=== PATIENT | male | born 1980 | race African-American/Black ===

== ENCOUNTER 2018-06-07 09:12 | Emergency (ER) | payer OTHER | END 2018-06-07 10:30 | disposition home or self-care (01) | LOC: M ED 09:12 | DX: M50.122 Cervical disc disorder at C5-C6 level with radiculopathy (principal); I10 Essential (primary) hypertension | CPT/HCPCS: 99283 ==

== ENCOUNTER → 2018-06-08 | Outpatient (CLI) | payer OTHER | LOC: M RAD 08:37 | DX: Z98.1 Arthrodesis status (principal); M50.222 Other cervical disc displacement at C5-C6 level; M54.12 Radiculopathy, cervical region | CPT/HCPCS: 72141 ==

== ENCOUNTER 2018-06-09 16:13 | Emergency (ER) | payer OTHER | END 2018-06-09 19:07 | disposition home or self-care (01) | LOC: M ED 16:13 | DX: M50.222 Other cervical disc displacement at C5-C6 level (principal); I10 Essential (primary) hypertension; Z79.899 Other long term (current) drug therapy | CPT/HCPCS: 99284 ==

== ENCOUNTER 2019-07-10 15:50 | Emergency (ER) | payer OTHER ==
[~2019-07-10] VITALS: Ht 165.1 cm; Wt 119.1 kg
[~2019-07-10 15:50] MED LIST: BLOOD PRESSURE MEDS; CYCL10TA PO; METO1TAB7 PO; NEUR300C PO; PRAZ1CAP PO; PRED20TA PO; ROSU40TA4 PO; VENTAER INH; VITA50005 PO; ZITHTAB PO
[2019-07-10] MEDS ORDERED: GABAPENTIN 300 MG CAP PO ONE (16:30)
[2019-07-10] MEDS ORDERED: NAPROXEN 250 MG TAB PO ONE (16:30)
[2019-07-10] MEDS ORDERED: GABA-843 PO (17:10)
[2019-07-10] MEDS ORDERED: NAPR-837 PO (17:10)
[2019-07-10 17:13] VITALS: BP 205/120
[2019-07-10] MEDS ORDERED: traMADol 50 MG TAB (BULK 4 TAB ED) PO ONE (17:30)
== END 2019-07-10 17:40 | disposition home or self-care (01) ==
LOC: M ED 15:50
DX: S46.001A Unspecified injury of muscle(s) and tendon(s) of the rotator cuff of right shoulder, initial encounter (principal); W01.0XXA Fall on same level from slipping, tripping and stumbling without subsequent striking against object, initial encounter; Y92.89 Other specified places as the place of occurrence of the external cause; I10 Essential (primary) hypertension; Z79.899 Other long term (current) drug therapy

== ENCOUNTER 2019-07-15 11:13 | Emergency (ER) | payer OTHER ==
[~2019-07-15] VITALS: Ht 165.1 cm; Wt 118.0 kg
[~2019-07-15 11:13] MED LIST changes: +GABA-843 PO; +NAPR-837 PO
[2019-07-15] MEDS ORDERED: EZET10TA21 PO (11:25)
[2019-07-15] MEDS ORDERED: cloNIDine 0.2 MG TAB PO ONE (12:00)
[2019-07-15 12:53] VITALS: BP 174/138
== END 2019-07-15 13:20 | disposition home or self-care (01) ==
LOC: M ED 11:13
DX: S46.001A Unspecified injury of muscle(s) and tendon(s) of the rotator cuff of right shoulder, initial encounter (principal); W10.8XXA Fall (on) (from) other stairs and steps, initial encounter; Y92.89 Other specified places as the place of occurrence of the external cause; Y99.0 Civilian activity done for income or pay; I10 Essential (primary) hypertension; Z79.899 Other long term (current) drug therapy; Z79.1 Long term (current) use of non-steroidal anti-inflammatories (NSAID)

== ENCOUNTER 2020-02-03 11:58 | Inpatient (IN) | payer OTHER ==
[~2020-02-03] VITALS: Ht 165.1 cm; Wt 119.9 kg
[2020-02-03] VITALS (16 sets, daily range): BP systolic 139–215; BP diastolic 80–129
[~2020-02-03 11:58] MED LIST changes: -AMLO10TA PO; -EPINEPHrine 1MG/ML INJ 30ML MD-VIAL As Ordered ONE; -GABA-1171 PO; -LIDOCAINE 2% 100MG/5ML SDV (FOR ANES.) As Ordered ONE; -LISI40TA PO; -LR 1,000 ML IV ONE; -MELO7.5T35; -METOPROLOL SUCC *XL* 25MG TAB (TopROL *XL*) As Ordered ONE; -METOPROLOL SUCC *XL* 25MG TAB (TopROL *XL*) PO ONE; -ONDANSETRON 4MG/2ML VIAL As Ordered ONE; -PERC10TA26 PO; -PERC5TAB12 PO; -PRAZ1CAP; -ROCURONIUM BROMIDE 50 MG/5 ML VIAL As Ordered ONE; -SELF1KIT MC; -SENO8.6T10 PO; -SUGAMMADEX SODIUM 500 MG/5 ML VIAL (BRIDION) As Ordered ONE; -TOPR50TA PO; -ceFAZolin SOD 2 GM in IV 1 EA IV ONE; -propofoL 200 MG/20 ML VIAL As Ordered ONE
[2020-02-03] MEDS ORDERED: TOPR50TA PO (12:13)
[2020-02-03] MEDS ORDERED: PRAZ1CAP (12:13)
[2020-02-03 12:43] LABS: HEMATOCRIT 40.6 % (42.0-52.0); HEMOGLOBIN 12.7 g/dl (13.5-17.5); MEAN CORPUSCULAR HEMOGLOBIN 24.9 pg (27.0-33.0); MEAN CORPUSCULAR HGB CONC 31.3 g/dl (32.0-36.5); MEAN CORPUSCULAR VOLUME 79.5 fl (80.0-96.0); PLATELET COUNT, AUTOMATED 226 10^3/uL (150-450); RED BLOOD COUNT 5.11 10^6/uL (4.30-6.10); WHITE BLOOD COUNT 4.7 10^3/uL (4.0-10.0)
[2020-02-03 13:10] LABS: ALBUMIN 3.8 GM/DL (3.2-5.2); BILIRUBIN,DIRECT 0.2 MG/DL (0.0-0.2); BILIRUBIN,TOTAL 0.9 MG/DL (0.2-1.0); TOTAL PROTEIN 6.5 GM/DL (6.4-8.2)
[2020-02-03] MEDS ORDERED: LABETALOL 100MG/20ML VIAL IV STA ×2 (13:12→14:08)
[2020-02-03] MEDS ORDERED: niCARdipine IV 40 MG in IV 1 EA IV SCH (15:05)
[2020-02-03] MEDS ORDERED: ACETAMINOPHEN TAB 650MG DOSE (2X325MG) PO PRN (15:15)
[2020-02-03] MEDS ORDERED: CHLORTHALIDONE 25 MG TAB PO ONE (15:15)
[2020-02-03] MEDS ORDERED: lisinopriL 40 MG TAB PO ONE (15:15)
--- NOTE | 2020-02-03 15:27 | HPEPDOC ---
General Date of Admission 02/03/20 Date of Service: Feb 03, 2020 Chief Complaint The patient is a 40-year-old male admitted with a reason for visit of Elevated Bp. Source: Patient Exam Limitations: No limitations Timing/Duration: 4-6 hours Severity: Moderate History of Present Illness Patient is 40 years old male with past medical history of hypertension presented hospital with systolic blood pressure of 230. Patient supposed to have elective surgery for rotator cuff injury in the morning however he was found to have significantly elevated blood pressure and he was sent to ER. In ER patient was found to have blood pressure of 234/133, mildly subsided after 2 doses of labetalol IV. After labetalol his blood pressure continues being 205/110. Patient does not have headache, visual changes. Labs pertinent for hemoglobin 12.6 and creatinine 1.3. EKG didn't show any acute ischemic changes. Of note patient stated that recently his blood pressure medication regimen was changed, JUAN DIEGO inhibitor was discontinued, prazosin was added. Home Medications Scheduled Gabapentin (Gabapentin) 300 Mg Capsule, 1 CAP PO BID increase to three times per week after first week Meloxicam (Mobic) 7.5 Mg Tablet, Unknown Dose PO PRN, (Reported) WITH FOOD Prazosin Hcl (Prazosin HCl) 1 Mg Capsule, QHS, (Reported) Scheduled PRN Albuterol Sulfate (Ventolin Hfa) 108 Mcg/Act Aer, 2 PUFFS INH Q4HP PRN for SHORTNESS OF BREATH Miscellaneous Medications Metoprolol Succinate (Toprol Xl) 50 Mg Tab.er.24h, (Reported) Allergies Coded Allergies: No Known Allergies (Unverified , 07/10/19) Past Medical History Medical History Hypertension Surgical History Rotator cuff injury Family History Mother had breast cancer Father had coronary artery diseases Social History * Smoker: Denies Alcohol: occationally Drugs: denies A-FIB/CHADSVASC A-FIB History Current/History of A-Fib/PAF?: No Current PO Anticoag Therapy: No Review of Systems Constitutional: Denies: Chills, Fever Eyes: Denies: Pain, Vision change ENT: Denies: Head Aches Skin: Denies: Rash Pulmonary: Denies: Dyspnea Cardiovascular: Denies: Chest Pain Gastrointestinal: Denies: Nausea Genitourinary: Denies: Dysuria Hematologic: Denies: Bruising Endocrine: Denies: Polydipsia Musculoskeletal: Denies: Neck Pain Neurological: Denies: Weakness Psych: Reports: Mood Normal Physical Examination General Exam: Positive: Alert, Cooperative Eye Exam: Positive: PERRLA ENT Exam: Positive: Atraumatic, Mucous membr. moist/pink Neck Exam: Positive: Supple; Negative: JVD Chest Exam: Positive: Clear to auscultation Heart Exam: Positive: Rate Normal Telemetry: Positive: No significant arrhythmia Abdomen Exam: Positive: Normal bowel sounds Extremity Exam: Negative: Clubbing Skin Exam: Positive: Nl turgor and temperature Neuro Exam: Positive: Strength at 5/5 X4 ext, Cranial Nerves 3-12 NL Psych Exam: Positive: Mental status NL Vital Signs Vital Signs Date Time Temp Pulse Resp B/P (MAP) Pulse Ox O2 Delivery O2 Flow Rate FiO2 02/03/20 14:44 78 216/128 02/03/20 14:31 99 02/03/20 12:02 97.0 18 Room Air Laboratory Data Labs 24H Laboratory Tests 2 02/03/20 12:33: Nucleated Red Blood Cells % (auto) 0.0, Total Bilirubin 0.9, Direct Bilirubin 0.2, Aspartate Amino Transf (AST/SGOT) 16, Alanine Aminotransferase (ALT/SGPT) 23, Alkaline Phosphatase 59, Total Protein 6.5, Albumin 3.8, Albumin/Globulin Ratio 1.4 02/03/20 12:41: POC Glucose (Misc Panel) 108H, POC Sodium (Misc Panel) 142, POC Potassium (Misc Panel) 3.8, POC Chloride (Misc Panel) 103, POC Total CO2 (Misc Panel) 26.0, POC Blood Urea Nitrogen (Misc Panel 12, POC Ionized Calcium (Misc Panel) 4.7, POC Creatinine (Misc Panel) 1.3, POC Hematocrit (Misc Panel) 40.0 CBC/BMP Laboratory Tests 02/03/20 12:33 Assessment/Plan Patient is 40 years old male with past medical history of hypertension presented hospital with systolic blood pressure of 230. Patient supposed to have elective surgery for rotator cuff injury in the morning however he was found to have significantly elevated blood pressure and he was sent to ER. In ER patient was found to have blood pressure of 234/133, mildly subsided after 2 doses of labetalol IV. After labetalol his blood pressure continues being 205/110. Cheyanne ent does not have headache, visual changes. Labs pertinent for hemoglobin 12.6 and creatinine 1.3. EKG didn't show any acute ischemic changes. Of note patient stated that recently his blood pressure medication regimen was changed, JUAN DIEGO inhibitor was discontinued, prazosin was adde Problems (1) Hypertensive urgency Status: Acute Problem Text: Patient does not have headache, visual changes, nosebleed His high blood pressure was resistant to 2 dose of labetalol IV Nicardipine drip I will start lisinopril and chlorthalidone Will check renin aldosterone ratio Kidney ultrasound Echo Plan / VTE VTE Prophylaxis Ordered?: Yes JUDI VACA DO Feb 03, 2020 15:27
[2020-02-03] MEDS ORDERED: GABA-1171 PO (15:28)
[2020-02-03] MEDS: HEPARIN SOD (PORCINE) 5000UNITS/ML VIAL (J1644 PER 1000UNITS) SC SCH (20:42)
[2020-02-04] VITALS (44 sets, daily range): BP systolic 81–237; BP diastolic 52–134
[2020-02-04 05:09] LABS: HEMATOCRIT 42.7 % (42.0-52.0); HEMOGLOBIN 13.6 g/dl (13.5-17.5); MEAN CORPUSCULAR HEMOGLOBIN 24.9 pg (27.0-33.0); MEAN CORPUSCULAR HGB CONC 31.9 g/dl (32.0-36.5); MEAN CORPUSCULAR VOLUME 78.2 fl (80.0-96.0); PLATELET COUNT, AUTOMATED 260 10^3/uL (150-450); RED BLOOD COUNT 5.46 10^6/uL (4.30-6.10); WHITE BLOOD COUNT 5.4 10^3/uL (4.0-10.0)
[2020-02-04 05:22] LABS: ALBUMIN 3.9 GM/DL (3.2-5.2); ALT/SGPT 21 U/L (12-78); BILIRUBIN,TOTAL 0.9 MG/DL (0.2-1.0); BLOOD UREA NITROGEN 11 MG/DL (7-18); CALCIUM LEVEL 8.8 MG/DL (8.5-10.1); CARBON DIOXIDE LEVEL 32 MEQ/L (21-32); CHLORIDE LEVEL 106 MEQ/L (98-107); CREATININE FOR GFR 1.23 MG/DL (0.70-1.30); GLOMERULAR FILTRATION RATE > 60.0 (>60); GLUCOSE, FASTING 108 MG/DL (70-100); MAGNESIUM LEVEL 2.2 MG/DL (1.8-2.4); POTASSIUM SERUM 3.6 MEQ/L (3.5-5.1); SODIUM LEVEL 143 MEQ/L (136-145); TOTAL PROTEIN 6.9 GM/DL (6.4-8.2)
[2020-02-04] MEDS ORDERED: cloNIDine 0.1 MG TAB PO SCH (07:45)
[2020-02-04] MEDS ORDERED: atenoloL 50 MG TAB PO ONE (08:00)
[2020-02-04] MEDS ORDERED: NITROGLYCERIN 2% OINT 1 GM *U/D* PKT TD SCH (08:00)
[2020-02-04] MEDS ORDERED: lisinopriL 40 MG TAB PO SCH (09:00)
[2020-02-04] MEDS: HEPARIN SOD (PORCINE) 5000UNITS/ML VIAL (J1644 PER 1000UNITS) SC SCH (09:10)
--- NOTE | 2020-02-04 09:27 | ECGEPIP ---
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
[2020-02-04] MEDS ORDERED: NS 1,000 ML IV ONE ×2 (11:00→13:30)
--- NOTE | 2020-02-04 11:59 | REPVR ---
PROCEDURE INFORMATION: Exam: US Retroperitoneal; Complete; Kidneys and Bladder Exam date and time: 02/04/2020 11:11 AM Age: 40 years old Clinical indication: Other: HTN; Additional info: HTN urgency R/O renal artery stenosis TECHNIQUE: Imaging protocol: Real-time ultrasound of the retroperitoneum with image documentation. Complete exam focused on the kidneys and bladder. COMPARISON: No relevant prior studies available. FINDINGS: Right kidney: There is a cystic lesion in the upper pole of the right kidney measuring 2.4 by 2.0 x 2.4 cm. There are small nodular echogenic foci at the periphery of this otherwise cystic lesion. The right kidney measures 9.8 x 3.9 x 4.3 cm. No hydronephrosis. No echogenic shadowing foci to suggest renal calculi. Right main renal artery peak systolic velocity 107 cm/s. Peak aortic velocity 98 cm/s. Renal aortic ratio 1.09. Resistive indices in the right kidney are within normal limits ranging from 0.54-0.55. Early systolic peaks are within normal limits. Left kidney: The left kidney is normal in size and echogenicity, measuring 9.5 x 4.4 x 4.0 cm. No hydronephrosis. No echogenic shadowing foci to suggest renal calculi. Left main renal artery peak systolic velocity is 107 cm/s. Peak aortic velocity is 98 cm/s. Renal aortic ratio is 1.09. Resistive indices on the left are within normal limits ranging from 0.52-0.56. Early systolic peaks are within normal limits. Intraperitoneal space: No free fluid. Bladder: The bladder is grossly unremarkable, mostly collapsed. IMPRESSION: 1. 2.4 cm cystic lesion in the upper pole of the right kidney, which has small nodular echogenic foci at its periphery, of uncertain etiology. This is indeterminate and could be further evaluated with MR or CT. 2. No evidence of renal artery stenosis. Electronically signed by: Katie Mendoza On 02/04/2020 11:58:53 AM
--- NOTE | 2020-02-04 14:45 | IPN ---
DATE: 02/04/2020 Patient denies any chest pain, pressure, or tightness, shortness of breath, lightheadedness, or dizziness. Admitted for hypertensive urgency. Elective surgery has been postponed due to uncontrolled blood pressure, 237/107. VITAL SIGNS: 237/107, 94% on room air, afebrile, pulse of 81, respiratory rate of 18. GENERAL: Awake, alert, oriented times three, anicteric sclerae. No jaundice. No icterus. Mucous membranes. No jugular venous distention (JVD) or thyromegaly. LUNGS: Clear to auscultation. No wheezes, rales, or rhonchi. HEART: S1, S2, sinus rhythm. ABDOMEN: Obese, soft, nontender, nondistended. Positive bowel sounds. EXTREMITIES: No cyanosis or clubbing. LABORATORY DATA: White count 5, hemoglobin 13, hematocrit 42, platelet count 260. Sodium 143, potassium 3.6, chloride 106, bicarbonate 32, BUN 11, creatinine 1.2, glucose 108. ASSESSMENT AND PLAN: A 40-year-old male had rotator cuff injury. Presented for routine blood test. Was found to have systolic pressure of 234, sent to the emergency room (ER). EKG had no acute ischemic changes. Creatinine was 1.3. Angiotensin-converting enzyme (JUAN DIEGO) inhibitor was discontinued. Prazosin was added. Patient was admitted for the following. 1. Hypertensive urgency. Was put on Nipride drip overnight. Nothing by mouth after midnight for renal ultrasound with Doppler. Rule out renal artery stenosis. Patient's Nipride drip can be discontinued and resume on home dose of chlorthalidone. Since creatinine is normal, awaiting renal ultrasound to make sure no renal artery stenosis. If negative, may resume on home dose of lisinopril. If still unstable, may place on nitroglycerine topically every 4 hours and Tylenol 100 times one. So long as the heart rate is greater than 60. Patient may benefit from cardiology referral, hypertensive specialist, Dr. Thierno Campuzano, as outpatient. We will wait for the aldosterone/renin ratio to rule out primary hyperaldosteronism. Check renal ultrasound with Doppler to rule out renal artery stenosis. Patient does not give any history of possible pheochromocytoma but may be evaluated as outpatient for metanephrines and vanillylmandelic acid. 2. Rotator cuff injury. Patient's surgery has been postponed until he is much more stable. Outpatient rescheduling. 3. Obesity, body mass index (BMI) of 44. Patient will benefit from obstructive sleep apnea (MED) workup as outpatient. Check lipid profile and A1c to rule out metabolic syndrome. MTDD
[2020-02-04] MEDS ORDERED: LISI40TA PO (17:04)
[2020-02-04] MEDS ORDERED: AMLO10TA PO (17:11)
[2020-02-04] MEDS ORDERED: PERC5TAB12 PO (17:12)
[2020-02-04] MEDS ORDERED: SELF1KIT MC (17:15)
[2020-02-04] MEDS ORDERED: PERC10TA26 PO (17:30)
[2020-02-04] MEDS ORDERED: SENO8.6T10 PO (17:30)
[2020-02-04] MEDS ORDERED: CHLORTHALIDONE 25 MG TAB PO SCH ×2 (18:00)
--- NOTE | 2020-02-06 16:12 | DSES ---
DATE OF ADMISSION: 02/03/2020 DATE OF DISCHARGE: 02/04/2020 DISCHARGE INSTRUCTIONS: Patient is to be referred to Dr. Campuzano, hypertensive specialist, traffic engineering director, [place], [place], for hypertensive urgency. DISCHARGE DIAGNOSES: 1. Hypertensive urgency. Renal artery stenosis has been ruled out. 2. Rotator cuff injury. 3. Obesity, body mass index of 44. Primary care physician to obtain an MRI or CT of the 2.4 cm cystic lesion, upper pole of the right kidney, within 2 weeks. DISCHARGE MEDICATIONS: - Norvasc 10 mg daily - lisinopril 40 mg daily - Percocet one tablet every 6 as needed for pain - Senokot one tablet by mouth twice a day as needed for constipation - albuterol two puffs inhaled every 4 as needed HOSPITAL COURSE: This is a 40-year-old male diagnosed with hypertension several years ago with no workup, who presented for routine blood best for elective rotator cuff injury with Dr. Smith and was found to have systolic pressure of 234, sent to the emergency room (ER) emergently due to hypertensive urgency. EKG had no acute ischemic changes. Creatinine was 1.3. Angiotensin-converting enzyme (JUAN DIEGO) inhibitor was initially discontinued. Prazosin was added. Patient was put on Nipride drip. Renal ultrasound with Doppler was ordered for the following day. He was kept nothing by mouth after midnight. On Nipride drip patient had improvement in his blood pressure to 133/78. Patient was removed from Nipride drip and started back on his home dose of lisinopril. He was given a dose of atenolol and chlorthalidone with subsequent hypotension, systolic pressure of 91/58. Patient was subsequently given 2 liters of intravenous (IV) bolus with improvement to 116/62. Patient was kept on Norvasc and lisinopril as outpatient and is to referred to Dr. Campuzano, hypertensive specialist, for further workup. Renin-angiotensin were obtained, but result was not back on the day of discharge. Renal ultrasound with Doppler showed no renal artery stenosis. PHYSICAL EXAMINATION ON DISCHARGE: Temperature 97.9, pulse 68, respiratory rate 16, blood pressure 116/62, 98% on room air. GENERAL: Awake, alert, oriented times three, answering questions appropriately. LUNGS: Clear to auscultation. No wheezes, rales, or rhonchi. HEART: S1, S2, sinus rhythm. No murmurs, rubs, or gallops. ABDOMEN: Soft, nontender, nondistended. Positive bowel sounds. EXTREMITIES: No cyanosis, clubbing, or any pitting edema. Patient has limited range of motion in the right shoulder due to rotator cuff injury. LABORATORY DATA ON DISCHARGE: White count 5.4, hemoglobin 13, hematocrit 42, platelet count 260. Sodium 143, potassium 3.6, chloride 106, bicarbonate 32, BUN 11, creatinine 1.23, glucose 108, calcium 8.8, magnesium 2.2. Total bilirubin 0.9, direct bilirubin 0.2, AST 17, ALT 21, alkaline phosphatase 58, total protein 6.9, albumin 3.9. Renin activity pending. IMAGING STUDIES: Renal ultrasound with Doppler: A 2.4 cm cystic lesion, upper pole of the kidney, which is small nodular density of uncertain etiology and determined it could be further evaluated with magnetic resonance cholangiopancreatography (MRCP). No evidence of renal artery stenosis. TIME SPENT ON DISCHARGE: 30 minutes. [facility]
== END 2020-02-04 18:45 | disposition home or self-care (01) | DRG 305 ==
LOC: M ED 11:58 → M ED INP 15:05 → ENRESERV 17:31 → M ICU 20:08
PROVIDERS: ADMIT Internal Medicine; ATTEND General Practice
DX: I16.0 Hypertensive urgency (principal); Z68.44 Body mass index [BMI] 60.0-69.9, adult; Z79.899 Other long term (current) drug therapy; E66.9 Obesity, unspecified

== ENCOUNTER → 2020-02-03 | Day surgery (SDC) | payer OTHER ==
[~2020-02-03] VITALS: Ht 165.1 cm; Wt 113.4 kg
[~2020-02-03] MED LIST changes: +AMLO10TA PO; +CYCL-707 PO; -CYCL10TA PO; +EPINEPHrine 1MG/ML INJ 30ML MD-VIAL As Ordered ONE; +EZET10TA21 PO; +GABA-1171 PO; +LIDOCAINE 2% 100MG/5ML SDV (FOR ANES.) As Ordered ONE; +LISI40TA PO; +LR 1,000 ML IV ONE; +MELO7.5T35; +METOPROLOL SUCC *XL* 25MG TAB (TopROL *XL*) As Ordered ONE; +METOPROLOL SUCC *XL* 25MG TAB (TopROL *XL*) PO ONE; +MOBI4TAB PO; +ONDANSETRON 4MG/2ML VIAL As Ordered ONE; +PERC10TA26 PO; +PERC5TAB12 PO; +PRAZ1CAP; +ROCURONIUM BROMIDE 50 MG/5 ML VIAL As Ordered ONE; +SELF1KIT MC; +SENO8.6T10 PO; +SUGAMMADEX SODIUM 500 MG/5 ML VIAL (BRIDION) As Ordered ONE; +TOPR50TA PO; +ceFAZolin SOD 2 GM in IV 1 EA IV ONE; +propofoL 200 MG/20 ML VIAL As Ordered ONE
[2020-02-03] MEDS: MIDAZOLAM INJ 2MG/2ML VIAL (J2250 PER 1MG) IV PRN ×2 (10:21→10:56)
[2020-02-03 10:56] VITALS: BP 218/120
[2020-02-03 11:27] VITALS: BP 218/144
--- NOTE | 2020-02-04 08:16 | IPN ---
DATE: 02/03/2020 Note from the day surgery. We had planned to perform right shoulder arthroscope biceps tenodesis versus superior labral anterior posterior (SLAP) repair. Unfortunately, Mr. Melendez's pressure remained 220 and greater than 200 with medications. As such, in consultation with the laborer heading, Dr. Collier, it has been decided to cancel the case due to high pressure not controlled with medications. We will send this patient through the emergency department due to high blood pressure over 200 to have this under control. He will followup with his family doctor to achieve better control of his blood pressure on outpatient status and reschedule the case.
== END | disposition home or self-care (01) ==
LOC: M SDC 09:12
PROVIDERS: ATTEND Orthopaedic Surgery Sports Medicine
DX: M75.21 Bicipital tendinitis, right shoulder (principal); Z53.09 Procedure and treatment not carried out because of other contraindication; I10 Essential (primary) hypertension
CPT/HCPCS: J2250 ×2

== ENCOUNTER → 2020-04-22 | Outpatient (CLI) | payer OTHER ==
[~2020-04-22] MED LIST changes: +AMLO10TA PO; +GABA-1171 PO; +LISI40TA PO; +MELO7.5T35; +PERC10TA26 PO; +PERC5TAB12 PO; +PRAZ1CAP; +SELF1KIT MC; +SENO8.6T10 PO; +TOPR50TA PO
== END ==
LOC: M LABSMTC 09:07
PROVIDERS: ATTEND Anesthesiology
DX: Z01.812 Encounter for preprocedural laboratory examination (principal); Z20.828 Contact with and (suspected) exposure to other viral communicable diseases

== ENCOUNTER 2020-04-27 08:10 | Day surgery (SDC) | payer OTHER ==
[~2020-04-27] VITALS: Ht 165.1 cm; Wt 120.1 kg
[~2020-04-27 08:10] MED LIST changes: +MIDAZOLAM INJ 2MG/2ML VIAL (J2250 PER 1MG) IV SCH; +fentaNYL 100 MCG/2 ML INJECTION (J3010) IV SCH
[2020-04-27] MEDS ORDERED: dexameTHASONE 10MG/1ML VIAL PRES.FREE (J1100 PER 1MG) ONE (08:11)
[2020-04-27] MEDS ORDERED: EPINEPHrine INJ 1 MG/ML 1ML AMP ONE (08:11)
[2020-04-27] MEDS ORDERED: ROPIvacaine 0.5% 30ML INJECTION (J2795 PER 1MG) ONE (08:11)
[2020-04-27] MEDS ORDERED: LR 1,000 ML IV ONE (08:45)
[2020-04-27] MEDS ORDERED: SUGAMMADEX SODIUM 500 MG/5 ML VIAL (BRIDION) As Ordered ONE (08:51)
[2020-04-27] MEDS ORDERED: propofoL 200 MG/20 ML VIAL As Ordered ONE (08:51)
[2020-04-27] MEDS ORDERED: ACETAMINOPHEN 1000MG 100ML IV BTL (OFIRMEV) (J0131 PER 10MG) As Ordered ONE (08:51)
[2020-04-27] MEDS ORDERED: ONDANSETRON 4MG/2ML VIAL As Ordered ONE (08:51)
[2020-04-27] MEDS ORDERED: LIDOCAINE 2% 100MG/5ML SDV (FOR ANES.) As Ordered ONE (08:51)
[2020-04-27] MEDS ORDERED: dexameTHASONE 4 MG/ML 1ML VIAL (J1100 PER 1MG) As Ordered ONE (08:51)
[2020-04-27] MEDS ORDERED: ROCURONIUM BROMIDE 50 MG/5 ML VIAL As Ordered ONE (08:51)
[2020-04-27] MEDS ORDERED: KETOROLAC 60MG 2ML VIAL As Ordered ONE (08:51)
[2020-04-27] MEDS ORDERED: fentaNYL 100 MCG/2 ML INJECTION (J3010) As Ordered ONE ×2 (08:56→09:18)
[2020-04-27] MEDS ORDERED: MIDAZOLAM INJ 2MG/2ML VIAL (J2250 PER 1MG) As Ordered ONE ×2 (08:56→09:18)
[2020-04-27] MEDS ORDERED: ceFAZolin 2 GM/D5W 50 ML IV BAG (J0690 PER 500MG) As Ordered ONE (09:17)
[2020-04-27] MEDS ORDERED: ceFAZolin SOD 2 GM in IV 1 EA IV ONE (09:30)
[2020-04-27] MEDS ORDERED: EPINEPHrine 1MG/ML INJ 30ML MD-VIAL As Ordered ONE (09:34)
[2020-04-27] MEDS ORDERED: TRANEXAMIC ACID 100 MG/ML 10ML VIAL As Ordered ONE (10:37)
[2020-04-27] MEDS ORDERED: oxyCODONE 5MG TAB PO PRN ×2 (12:00→14:15)
[2020-04-27] MEDS ORDERED: ONDANSETRON 4MG/2ML VIAL IV PRN ×3 (12:00→14:15)
[2020-04-27] MEDS ORDERED: LR 1,000 ML IV SCH ×3 (12:00→14:15)
[2020-04-27] MEDS ORDERED: MEPERIDINE INJ 25 MG/ML VIAL (J2175) IV PRN ×2 (12:00→14:15)
[2020-04-27] MEDS ORDERED: METOCLOPRAMIDE INJ 10MG/2ML VIAL (J2765 PER 1) IV PRN ×2 (12:00→14:15)
[2020-04-27] MEDS: fentaNYL 100 MCG/2 ML INJECTION (J3010) IV PRN ×2 (12:30→12:36)
[2020-04-27] MEDS ORDERED: PERCOCET 5MG/325MG TAB PO PRN (13:00)
[2020-04-27] MEDS ORDERED: ACETAMINOPHEN TAB 650MG DOSE (2X325MG) PO PRN (13:00)
[2020-04-27] MEDS ORDERED: MORPHINE 2 MG/ML 1ML VIAL (J2270) IV PRN (13:00)
[2020-04-27] MEDS ORDERED: oxyCODONE 5MG TAB As Ordered ONE (14:03)
[2020-04-27] MEDS ORDERED: fentaNYL 100 MCG/2 ML INJECTION (J3010) IV PRN (14:15)
[2020-04-27 15:00] VITALS: BP 124/65
--- NOTE | 2020-05-01 08:05 | RO ---
DATE OF OPERATION: 04/27/2020 PREOPERATIVE DIAGNOSIS: Right shoulder SLAP tear. POSTOPERATIVE DIAGNOSIS: Right shoulder SLAP tear. PLANNED PROCEDURE: Right shoulder arthroscopic biceps subpectoral tenodesis. PROCEDURE PERFORMED: Right shoulder arthroscopic biceps subpectoral tenodesis; subacromial decompression; debridement of anterior labrum; takedown CA ligament. SURGEON: Keshawn Smith MD PIPE COREMAKER: Juli Das ANESTHESIA: General anesthetic plus block. OPERATIVE PREAMBLE: This 40-year-old man sustained a fall at work. Physical exam and MRI findings were consistent with SLAP tear. We talked about the pros and cons, risks and benefits of biceps subpectoral tenodesis in his age over 40. We reiterated the risks in preoperative holding and marked the right upper quadrant and proceeded to surgery. OPERATIVE REPORT: The patient was brought to the operating theater. Administered general anesthetic. He was placed in the supine in the beachchair positioner. 2 gm IV Ancef was administered and 2 gm IV tranexamic acid. Spider arm positioner was used to the patients right limb. All bony prominences were padded. SCDs were used on the down leg and bear hugger. Limb was prepped and draped in usual sterile fashion allowing over 3 minutes for the prep solution drying time prior to draping. Preoperative time out was performed confirming the site, patient and surgery. We began by inserting the arthroscope through standard posterior portal into the interarticular portion of the right shoulder. We made an anterior arthroscopy portal through the rotator interval using inside-out spinal needle localization. There was an obvious type 2 SLAP tear. Ablator was used to release the long head of the biceps. Shaving instrument was used to gently debride the superior and anterior labrum. There was moderate amount of anterior labral fraying. Subscapularis appeared normal as did the inner surface of the entire rotator cuff. Inferior axillary pouch was entered, no obvious loose body. Cartilage of humeral head and glenoid was normal. Scope was removed and inserted into subacromial space. There was small amount of bursitis. This was gently debrided through lateral portal. Shaver instrument brought in. Subacromial decompression was performed for full burs width. There was moderate type 2 down slope to the anterolateral acromion. No obvious rotator cuff tears. Arthroscope was withdrawn. Small longitudinal incision was made just below the pec insertion in line with the long head of the biceps, carried down through skin and subcutaneous tissue. Long head of the biceps was identified and delivered through the incision. FiberWire Arthrex Bio-Tenodesis Button System was used with Ariel needle. I whip stitched the tendon. I then fixed the sutures to the button in crisscross fashion. I identified the site for ideal tension on the tenodesis just proximal to this and underneath and deep to the pectoralis major tendon. I used spade-tip drill to drill bicortical. I delivered the button bicortical in the far cortex and then tensioned both suture limbs, delivered the tendon to the bone tunnel. I used Sorensen needle to then re-lock the suture into the tendon and then used alternating half stitches five throws and cut the sutures short. This fixed the biceps tendon nicely. The wounds were thoroughly irrigated. Subcutaneous tissue was closed with interrupted 2-0 Vicryl sutures and skin with 3-0 Monocryl and Steri-Strips. Local anesthetic was not used due to preoperative block. The skin was cleaned with wet-and-dry dressing followed by application of occlusive dressing. The patient was awoken up from general anesthetic. Upper extremity taken out of the setup, placed into sling. The patient was transferred off the operating table and taken to postanesthetic unit in stable condition. All sponge, instrument and needle counts were correct. No complications. Estimated blood loss 30 mL. Plan is for the patient to be in a sling, pendulum exercises. No active elbow flexion exercises for the first 4-6 weeks. Follow up in clinic in two weeks time. He may be discharged home according to day surgery criteria. Follow up in the office in two weeks time. Prescriptions sent to the pharmacy of choice. JORDANA
== END 2020-04-27 15:24 | disposition home or self-care (01) ==
LOC: M SDC 08:10
PROVIDERS: ATTEND Orthopaedic Surgery Sports Medicine
DX: S43.431A Superior glenoid labrum lesion of right shoulder, initial encounter (principal); W19.XXXA Unspecified fall, initial encounter; Y92.89 Other specified places as the place of occurrence of the external cause; Y93.9 Activity, unspecified; Y99.9 Unspecified external cause status; J45.909 Unspecified asthma, uncomplicated; I10 Essential (primary) hypertension; F43.10 Post-traumatic stress disorder, unspecified; F41.9 Anxiety disorder, unspecified; F32.9 Major depressive disorder, single episode, unspecified; Z79.899 Other long term (current) drug therapy; Z91.81 History of falling
CPT/HCPCS: 29823; 29826; 29828; 64415; C1713; J0131; J0171; J0690; J1100; J1885; J2250; J2405; J2795; J3010

== ENCOUNTER → 2020-05-27 | Outpatient (CLI) | payer OTHER ==
[~2020-05-27] MED LIST changes: -MIDAZOLAM INJ 2MG/2ML VIAL (J2250 PER 1MG) IV SCH; -fentaNYL 100 MCG/2 ML INJECTION (J3010) IV SCH
== END ==
LOC: M LABSMTC 09:44
PROVIDERS: ATTEND Physical Medicine & Rehabilitation
DX: Z01.812 Encounter for preprocedural laboratory examination (principal); Z20.828 Contact with and (suspected) exposure to other viral communicable diseases

== ENCOUNTER → 2020-05-31 | Outpatient (CLI) | payer OTHER ==
[2020-05-31 18:12] LABS: PLATELET COUNT, AUTOMATED 296 10^3/uL (150-450)
[2020-05-31 18:22] LABS: INR 0.97; PROTHROMBIN TIME 13.1 SECONDS (12.5-14.3)
[2020-05-31 18:23] LABS: PARTIAL THROMBOPLASTIN TIME 29.7 SECONDS (24.2-38.5)
[2020-05-31 18:32] LABS: COLLAGEN EPINEPHRINE 126 SECONDS (74-162)
== END ==
LOC: M LAB 16:48
PROVIDERS: ATTEND Physician Assistant
DX: M47.22 Other spondylosis with radiculopathy, cervical region (principal); M47.815 Spondylosis without myelopathy or radiculopathy, thoracolumbar region

== ENCOUNTER → 2020-11-07 | Outpatient (CLI) | payer OTHER ==
[~2020-11-07] MED LIST changes: +D31000TA2 PO; +DULO1CAP4 PO; +GABA-282 PO; -GABA-843 PO; -LISI40TA PO; +LISI40TA4 PO; +LOSA100T50 PO; +METO1TAB33 PO
== END ==
LOC: M LABSMTC 11:27
PROVIDERS: ATTEND Anesthesiology
DX: Z01.818 Encounter for other preprocedural examination (principal)

== ENCOUNTER 2020-11-12 08:51 | Day surgery (SDC) | payer OTHER ==
[~2020-11-12] VITALS: Ht 165.1 cm; Wt 126.1 kg
[~2020-11-12 08:51] MED LIST changes: +LIDOCAINE 2% 100MG/5ML SDV (FOR ANES.) As Ordered ONE; +NS 1,000 ML IV ONE; +propofoL 200 MG/20 ML VIAL As Ordered ONE
--- NOTE | 2020-11-12 11:34 | ROOR ---
Patient Name: Mahdi Melendez Procedure Date: 11/12/2020 11:14 AM Date of : 1980 Age: 40 Room: [facility] Gender: Male Note Status: Finalized Procedure: Colonoscopy to Ascending colon Indications: Screening for colorectal malignant neoplasm Providers: Ilya Stephens MD Referring MD: Juli Perez MD Requesting Provider: Medicines: Monitored Anesthesia Care Complications: No immediate complications. Procedure: Pre-Anesthesia Assessment: - The heart rate, respiratory rate, oxygen saturations, blood pressure, adequacy of pulmonary ventilation, and response to care were monitored throughout the procedure. The Colonoscope was introduced through the anus with the intention of advancing to the cecum. The scope was advanced to the ascending colon before the procedure was aborted. Medications were given. The colonoscopy was performed without difficulty. The patient tolerated the procedure well. The quality of the bowel preparation was inadequate. Findings: The perianal and digital rectal examinations were normal. A large amount of stool was found in the entire colon. The exam was otherwise without abnormality. Impression: - Preparation of the colon was inadequate. - Stool in the entire examined colon. - The examination was otherwise normal. - No specimens collected. - The examination was otherwise normal. Recommendation: - Patient has a contact number available for emergencies. The signs and symptoms of potential delayed complications were discussed with the patient. Return to normal activities tomorrow. Written discharge instructions were provided to the patient. - Discharge patient to home. - Continue present medications. - Repeat colonoscopy within 3 months because the bowel preparation was suboptimal. - Return to referring physician. - The findings and recommendations were discussed with the patient. Procedure Code(s): --- Professional --- 92233, 53, Colonoscopy, flexible; diagnostic, including collection of specimen(s) by brushing or washing, when performed (separate procedure) Diagnosis Code(s): --- Professional --- Z12.11, Encounter for screening for malignant neoplasm of colon CPT copyright 2019 [employer]. All rights reserved. The codes documented in this report are preliminary and upon paint roller covermaker review may be revised to meet current compliance requirements. Ilya Stephens MD Ilya Stephens MD 11/12/2020 11:33:58 AM Electronically signed by Ilya Stephens MD Number of Addenda: 0 Note Initiated On: 11/12/2020 11:14 AM Estimated Blood Loss: Estimated blood loss: none.
[2020-11-12 11:58] VITALS: BP 155/99
== END 2020-11-12 11:59 | disposition home or self-care (01) ==
LOC: M OPP 08:51
PROVIDERS: ATTEND Internal Medicine Gastroenterology
DX: Z12.11 Encounter for screening for malignant neoplasm of colon (principal); Z80.0 Family history of malignant neoplasm of digestive organs; Z79.899 Other long term (current) drug therapy

== ENCOUNTER → 2021-03-13 | Outpatient (CLI) | payer OTHER ==
[~2021-03-13] MED LIST changes: -LIDOCAINE 2% 100MG/5ML SDV (FOR ANES.) As Ordered ONE; -NS 1,000 ML IV ONE; -propofoL 200 MG/20 ML VIAL As Ordered ONE
== END ==
LOC: M PLAIMG 10:09
PROVIDERS: ATTEND Physician Assistant
DX: M47.22 Other spondylosis with radiculopathy, cervical region (principal)

== ENCOUNTER → 2021-04-30 | Outpatient (CLI) | payer OTHER ==
--- NOTE | 2021-04-30 15:12 | REP ---
INDICATION: R/O LOOSENING VS PERISCREW OSTEOLYSIS. COMPARISON: MRI 03/13/2021. TECHNIQUE: CT cervical spine performed in the axial plane, with sagittal and coronal reconstruction images performed. FINDINGS: There is no acute compression fracture or malalignment. There is no prevertebral soft tissue swelling. There is again evidence of anterior cervical discectomy and fusion at C3-4, with a metallic plate anteriorly fixed by a single screw at each of the C3 and C4 levels. There is an intervening disc spacer with osseous fusion across the disc space. Irregularly lucency is seen along the disc spacer. There is no significant osteolysis along either screw. There is normal alignment of the cervical vertebral bodies. There is anterior spurring of the C3 vertebral body superiorly. There is a large anterior osteophyte at the inferior aspect of C4. There is moderate anterior spurring of C5 and C6. There is mild disc space narrowing at all levels. There is mild posterior osteophytic ridging at C5-6 with mild spinal stenosis at that level. There is degenerative ossification of the ligamentum nuchae. IMPRESSION: No evidence of acute fracture or dislocation.Anterior metallic plate with single screw at the C3 and C4 levels. Disc spacer fusion across C3-4. Irregular lucency along much of the disc spacer without significant lucency along either screw. <Electronically signed by Georgi Tran > 04/30/21 [id number]
== END ==
LOC: M PLAIMG 07:50
PROVIDERS: ATTEND Physician Assistant
DX: M47.22 Other spondylosis with radiculopathy, cervical region (principal)

== ENCOUNTER → 2021-07-01 | Outpatient (CLI) | payer OTHER ==
--- NOTE | 2021-07-01 15:25 | REP ---
INDICATION: ORTHOPEDIC AFTERCARE. COMPARISON: Outside examination dated 07/28/2019 TECHNIQUE: Internal rotation, external rotation, Y-view, neutral and axillary views of the right shoulder FINDINGS: There is no evidence for acute fracture or dislocation Bulky osteophyte along the inferior margin of the distal acromion has subsequently formed. The distal clavicle is stable and the acromioclavicular joint itself is relatively normal measuring 6 mm. The glenoid and humeral head appear relatively normal. There is a small surgical orthopedic clip overlying the proximal humeral metadiaphysis. IMPRESSION: Degenerative and postsurgical changes as noted above <Electronically signed by Juan Taylor > 07/01/21 [id number]
== END ==
LOC: M SOG 15:01
PROVIDERS: ATTEND Orthopaedic Surgery Sports Medicine
DX: Z47.89 Encounter for other orthopedic aftercare (principal)

== ENCOUNTER → 2021-08-10 | Outpatient (CLI) | payer OTHER ==
[~2021-08-10] MED LIST changes: +LOSA100T45 PO; -LOSA100T50 PO
== END ==
LOC: M LABSMTC 09:57
PROVIDERS: ATTEND Anesthesiology
DX: Z01.812 Encounter for preprocedural laboratory examination (principal); Z20.822 Contact with and (suspected) exposure to COVID-19

== ENCOUNTER 2021-08-14 08:55 | Day surgery (SDC) | payer OTHER ==
[~2021-08-14] VITALS: Ht 188 cm; Wt 119.3 kg
[~2021-08-14 08:55] MED LIST changes: +NS 1,000 ML IV ONE
[2021-08-14] MEDS ORDERED: propofoL 200 MG/20 ML VIAL As Ordered ONE (10:57)
[2021-08-14] MEDS ORDERED: LIDOCAINE 2% 100MG/5ML SDV (FOR ANES.) As Ordered ONE (10:57)
[2021-08-14 11:00] VITALS: BP 132/85
== END 2021-08-14 11:08 | disposition home or self-care (01) ==
LOC: M OPP 08:55
PROVIDERS: ATTEND Internal Medicine Gastroenterology
DX: Z12.11 Encounter for screening for malignant neoplasm of colon (principal); K64.0 First degree hemorrhoids; Z79.899 Other long term (current) drug therapy

== ENCOUNTER → 2021-09-16 | Outpatient (CLI) | payer OTHER ==
[~2021-09-16] MED LIST changes: -D31000TA2 PO; -NS 1,000 ML IV ONE; +VITA100093 PO
== END ==
LOC: M SLEEP 20:00
PROVIDERS: ATTEND Internal Medicine
DX: G47.33 Obstructive sleep apnea (adult) (pediatric) (principal)

== ENCOUNTER → 2021-10-14 | Outpatient (CLI) | payer OTHER | LOC: M PLAIMG 08:43 | PROVIDERS: ATTEND Orthopaedic Surgery Sports Medicine | DX: R93.7 Abnormal findings on diagnostic imaging of other parts of musculoskeletal system (principal); S43.431D Superior glenoid labrum lesion of right shoulder, subsequent encounter; M25.511 Pain in right shoulder; Z47.89 Encounter for other orthopedic aftercare ==

== ENCOUNTER → 2022-05-21 | Outpatient (CLI) | payer OTHER | LOC: M SOG 09:50 | PROVIDERS: ATTEND Orthopaedic Surgery | DX: M25.512 Pain in left shoulder (principal) ==

== ENCOUNTER → 2022-06-25 | Outpatient (CLI) | payer OTHER ==
[~2022-06-25] MED LIST changes: +ISOVUE-300 61% 50ML VIAL As Ordered ONE; +LIDOCAINE 1% MDV 20ML VIAL As Ordered ONE; +PROHANCE 279.3MG/ML 5ML VIAL As Ordered ONE
== END ==
LOC: M RAD 06:17
PROVIDERS: ATTEND Orthopaedic Surgery
DX: S43.432A Superior glenoid labrum lesion of left shoulder, initial encounter (principal); X58.XXXA Exposure to other specified factors, initial encounter; Y92.9 Unspecified place or not applicable
CPT/HCPCS: 23350; 73223; 77002; A9576

== ENCOUNTER → 2022-10-01 | Outpatient (CLI) | payer OTHER ==
[~2022-10-01] MED LIST changes: -ISOVUE-300 61% 50ML VIAL As Ordered ONE; -LIDOCAINE 1% MDV 20ML VIAL As Ordered ONE; -PROHANCE 279.3MG/ML 5ML VIAL As Ordered ONE
== END ==
LOC: M PLAIMG 06:56
PROVIDERS: ATTEND Orthopaedic Surgery
DX: M47.22 Other spondylosis with radiculopathy, cervical region (principal); M50.222 Other cervical disc displacement at C5-C6 level

== ENCOUNTER → 2024-10-04 | Outpatient (CLI) | payer OTHER ==
[~2024-10-04] MED LIST changes: +GABA-1172 PO; -GABA-282 PO; -LOSA100T45 PO; +LOSA100T46 PO; -ROSU40TA4 PO; +ROSU40TA81 PO
== END ==
LOC: M RAD 11:57
PROVIDERS: ATTEND Internal Medicine
DX: Q61.9 Cystic kidney disease, unspecified (principal)

== ENCOUNTER → 2024-12-06 | Outpatient (REF) | payer OTHER ==
[~2024-12-06] MED LIST changes: +AMLO-751 PO; -AMLO10TA PO
[2024-12-06 19:10] LABS: FERRITIN 222.8 NG/ML (10.5-307.3)
== END ==
LOC: M LAB REF 16:59
PROVIDERS: ATTEND Internal Medicine Nephrology
DX: N18.9 Chronic kidney disease, unspecified (principal); D63.1 Anemia in chronic kidney disease

== ENCOUNTER 2025-02-13 12:10 | Outpatient (CLI) | payer OTHER ==
[~2025-02-13] VITALS: Ht 165.1 cm; Wt 120.0 kg
[~2025-02-13 12:10] MED LIST changes: +ALBUTEROL SULFATE 2.5 MG/0.5 ML INH CONCENTRATE NEB SOLN INH PRN; +EPINEPHrine INJ 1 MG/ML 1ML AMP IM PRN; +LISI40TA10 PO; -LISI40TA4 PO; +NS (Normal Saline) 0.9% 1,000 ML IV SCH; +diphenhydrAMINE 50 MG/ML VIAL IV PRN
[2025-02-13 12:20] VITALS: BP 155/89; O2SAT 97
[2025-02-13] MEDS: IRON SUCROSE 300 MG in NS 250 ML OVER 90 MIN. IV ONE (12:41)
[2025-02-13] MEDS ORDERED: METF500T13 PO (12:47)
[2025-02-13] MEDS ORDERED: AMLO1TAB25 PO (12:47)
[2025-02-13] MEDS ORDERED: FINE10TA PO (12:47)
[2025-02-13] MEDS ORDERED: ROSU5TAB49 PO (12:47)
[2025-02-13 14:50] VITALS: BP 151/88; O2SAT 97
== END 2025-02-13 14:50 | disposition home or self-care (01) ==
LOC: M INFU 12:10
PROVIDERS: ATTEND Internal Medicine Nephrology
DX: D64.9 Anemia, unspecified (principal); N18.9 Chronic kidney disease, unspecified
CPT/HCPCS: 96365; 96366; J1756

== ENCOUNTER 2025-02-20 09:42 | Outpatient (CLI) | payer OTHER ==
[~2025-02-20] VITALS: Ht 165.1 cm; Wt 120.0 kg
[~2025-02-20 09:42] MED LIST changes: +AMLO1TAB25 PO; +FINE10TA PO; +METF500T13 PO; +ROSU5TAB49 PO
[2025-02-20 09:45] VITALS: BP 126/70; O2SAT 97
[2025-02-20] MEDS: IRON SUCROSE 300 MG in NS 250 ML OVER 90 MIN. IV ONE (10:25)
[2025-02-20 12:05] VITALS: BP 150/94; O2SAT 100
== END 2025-02-20 12:05 | disposition home or self-care (01) ==
LOC: M INFU 09:42
PROVIDERS: ATTEND Internal Medicine Nephrology
DX: D64.9 Anemia, unspecified (principal); N18.9 Chronic kidney disease, unspecified
CPT/HCPCS: 96365; 96366; J1756

== ENCOUNTER 2025-02-27 10:48 | Outpatient (CLI) | payer OTHER ==
[~2025-02-27] VITALS: Ht 165.1 cm; Wt 118.0 kg
[2025-02-27 11:00] VITALS: BP 126/79; O2SAT 97
[2025-02-27] MEDS: IRON SUCROSE 300 MG in NS 250 ML OVER 90 MIN. IV ONE (11:47)
[2025-02-27 13:20] VITALS: BP 134/89; O2SAT 97
== END 2025-02-27 13:35 ==
LOC: M INFU 10:48
PROVIDERS: ATTEND Internal Medicine Nephrology
DX: D64.9 Anemia, unspecified (principal); N18.9 Chronic kidney disease, unspecified
CPT/HCPCS: 96365; 96366; J1756